=== PATIENT | male | born 1955 | race Native Hawaiian/Other Pacific Islander ===

== ENCOUNTER 2017-11-02 04:56 | Emergency (ER) | payer OTHER ==
[~2017-11-02] VITALS: Ht 177.8 cm; Wt 74.8 kg
[~2017-11-02 04:56] MED LIST: ALPR0.2566 PO; AMBIEN5 MG PO; BC HEADACHE PO; METOPROLOL25 M1 OR; OMEP20CA PO; PROZAC10 MG PO
[2017-11-02 07:09] LABS: POTASSIUM 3.8 mmol/L (3.6-5.2); SODIUM 129 mmol/L (136-145)
[2017-11-02 07:10] LABS: PLATELET COUNT 235 K/uL (142-355)
[2017-11-02 08:35] VITALS: BP 154/83
== END 2017-11-02 08:35 | disposition home or self-care (01) ==
LOC: ED 04:56
PROVIDERS: Emergency Medicine
DX: R07.89 Other chest pain (principal); F41.9 Anxiety disorder, unspecified; F15.90 Other stimulant use, unspecified, uncomplicated; F14.90 Cocaine use, unspecified, uncomplicated; R00.1 Bradycardia, unspecified
CPT/HCPCS: 80053; 80307; 82550; 82553; 84484; 85027; 93005; 96360; 99284; G0479

== ENCOUNTER 2018-01-19 09:23 | Outpatient (CLI) | payer OTHER | END 2018-01-19 09:31 | disposition short-term general hospital (02) | LOC: AMB 09:23 | DX: R07.89 Other chest pain (principal); M54.2 Cervicalgia | CPT/HCPCS: A0425; A0427 ==

== ENCOUNTER 2018-01-19 09:31 | Emergency (ER) | payer OTHER ==
[~2018-01-19] VITALS: Ht 177.8 cm; Wt 74.8 kg
[2018-01-19 09:44] VITALS: TEMP 98.1
[2018-01-19 10:11] LABS: PLATELET COUNT 235 K/uL (142-355)
[2018-01-19 10:45] LABS: POTASSIUM 4.2 mmol/L (3.6-5.2)
[2018-01-19 12:35] VITALS: BP 121/76
== END 2018-01-19 12:37 | disposition home or self-care (01) ==
LOC: ED 09:31
DX: F15.10 Other stimulant abuse, uncomplicated (principal); F13.10 Sedative, hypnotic or anxiolytic abuse, uncomplicated
CPT/HCPCS: 36415; 80053; 80307; 81000; 82550; 84484; 85027; 93005; 99283

== ENCOUNTER 2018-05-14 01:44 | Emergency (ER) | payer OTHER ==
[~2018-05-14] VITALS: Ht 177.8 cm; Wt 73.5 kg
[2018-05-14 01:52] VITALS: BP 126/82; TEMP 98.2
[2018-05-14 02:24] LABS: PLATELET COUNT 257 K/uL (142-355)
== END 2018-05-14 04:00 ==
LOC: ED 01:44
PROVIDERS: Family Medicine
DX: F19.10 Other psychoactive substance abuse, uncomplicated (principal)
CPT/HCPCS: 36415; 80307; 85027; 93005; 99285

== ENCOUNTER → 2018-05-14 | Outpatient (CLI) | payer OTHER | END | disposition short-term general hospital (02) | LOC: AMB 01:23 | DX: R45.851 Suicidal ideations (principal); F19.129 Other psychoactive substance abuse with intoxication, unspecified | CPT/HCPCS: A0425; A0429 ==

== ENCOUNTER 2018-05-24 17:34 | Emergency (ER) | payer OTHER ==
[~2018-05-24] VITALS: Ht 177.8 cm; Wt 73.5 kg
[2018-05-24 19:44] VITALS: BP 126/72; TEMP 98.7
== END 2018-05-24 19:44 | disposition home or self-care (01) ==
LOC: ED 17:34
DX: S02.31XA Fracture of orbital floor, right side, initial encounter for closed fracture (principal); Y09 Assault by unspecified means
CPT/HCPCS: 80307; 99283

== ENCOUNTER 2018-07-18 20:31 | Emergency (ER) | payer OTHER ==
[~2018-07-18] VITALS: Ht 177.8 cm; Wt 73.5 kg
[2018-07-18 20:17] VITALS: TEMP 98.2
[2018-07-18 21:42] LABS: PLATELET COUNT 251 K/uL (142-355)
[2018-07-18 21:54] LABS: POTASSIUM 3.8 mmol/L (3.6-5.2)
[2018-07-19 03:50] VITALS: BP 140/82
== END 2018-07-19 03:51 | disposition still patient (30) ==
LOC: ED 20:31
DX: F29 Unspecified psychosis not due to a substance or known physiological condition (principal); F15.10 Other stimulant abuse, uncomplicated
CPT/HCPCS: 80053; 80307; 80320; 80329; 81000; 85027; 93005; 99285

== ENCOUNTER 2019-07-16 00:22 | Outpatient (CLI) | payer OTHER | END 2019-07-16 00:26 | disposition short-term general hospital (02) | LOC: AMB 00:22 | DX: F15.10 Other stimulant abuse, uncomplicated (principal); T43.621A Poisoning by amphetamines, accidental (unintentional), initial encounter; Y92.038 Other place in apartment as the place of occurrence of the external cause | CPT/HCPCS: A0425; A0427 ==

== ENCOUNTER 2019-07-16 00:32 | Emergency (ER) | payer OTHER ==
[~2019-07-16] VITALS: Ht 177.8 cm; Wt 74.8 kg
[2019-07-16 00:36] VITALS: BP 160/81; TEMP 97.3
[2019-07-16 00:54] LABS: PLATELET COUNT 248 K/uL (142-355)
[2019-07-16 01:02] LABS: POTASSIUM 3.8 mmol/L (3.6-5.2); SODIUM 137 mmol/L (136-145)
== END 2019-07-16 00:58 | disposition home or self-care (01) ==
LOC: ED 00:32
PROVIDERS: Emergency Medicine
DX: R19.09 Other intra-abdominal and pelvic swelling, mass and lump (principal); T43.625A Adverse effect of amphetamines, initial encounter; Y92.89 Other specified places as the place of occurrence of the external cause
CPT/HCPCS: 36415; 80053; 80320; 80329; 82550; 82553; 84484; 85027; 93005; 99283

== ENCOUNTER 2019-08-26 20:03 | Emergency (ER) | payer OTHER ==
[~2019-08-26] VITALS: Ht 177.8 cm; Wt 74.8 kg
[2019-08-26 22:07] VITALS: BP 129/68; TEMP 98.9
== END 2019-08-26 21:37 | disposition home or self-care (01) ==
LOC: ED 20:03
DX: J02.9 Acute pharyngitis, unspecified (principal); F17.210 Nicotine dependence, cigarettes, uncomplicated
CPT/HCPCS: 87502; 87651; 99283

== ENCOUNTER 2020-04-15 03:02 | Emergency (ER) | payer OTHER ==
[~2020-04-15] VITALS: Ht 177.8 cm; Wt 74.8 kg
[2020-04-15 04:04] VITALS: BP 146/79; TEMP 98.3
== END 2020-04-15 04:05 | disposition home or self-care (01) ==
LOC: ED 03:02
DX: T78.49XA Other allergy, initial encounter (principal)
CPT/HCPCS: 96372; 99282; J1200; J2930

== ENCOUNTER 2020-04-16 01:29 | Emergency (ER) | payer OTHER ==
[~2020-04-16] VITALS: Ht 177.8 cm; Wt 76.2 kg
[2020-04-16 01:35] VITALS: BP 149/70; TEMP 98.9
[2020-04-16 02:23] LABS: POTASSIUM 4.3 mmol/L (3.6-5.2); SODIUM 137 mmol/L (136-145)
[2020-04-16 02:28] LABS: PLATELET COUNT 274 K/uL (142-355)
== END 2020-04-16 04:30 | disposition home or self-care (01) ==
LOC: ED 01:29
PROVIDERS: Family Medicine
DX: F15.10 Other stimulant abuse, uncomplicated (principal); R07.89 Other chest pain; Z79.899 Other long term (current) drug therapy
CPT/HCPCS: 36415; 80053; 80307; 81000; 82550; 83735; 83880; 84484; 85027; 85379; 93005; 99283

== ENCOUNTER 2020-06-04 22:06 | Emergency (ER) | payer OTHER ==
[~2020-06-04] VITALS: Ht 177.8 cm; Wt 76.2 kg
[2020-06-04 22:47] LABS: PLATELET COUNT 224 K/uL (142-355)
[2020-06-04 22:53] LABS: POTASSIUM 4.2 mmol/L (3.6-5.2)
[2020-06-05 02:35] VITALS: BP 131/67; TEMP 98.3
== END 2020-06-05 02:35 | disposition other institution (70) ==
LOC: ED 22:06
PROVIDERS: Emergency Medicine
DX: F28 Other psychotic disorder not due to a substance or known physiological condition (principal)
CPT/HCPCS: 36415; 80053; 80307; 80320; 80329; 81000; 85027; 93005; 99285

== ENCOUNTER 2022-09-19 00:35 | Emergency (ER) | payer OTHER ==
[~2022-09-19] VITALS: Ht 177.8 cm; Wt 76.2 kg
[2022-09-19 00:35] VITALS: TEMP 98.5
[2022-09-19 01:19] LABS: PLATELET COUNT 240 K/uL (142-355)
[2022-09-19 01:56] LABS: PARTIAL THROMBOPLASTIN TIME 24.3 SECONDS (24.5-33.6)
[2022-09-19 01:58] LABS: POTASSIUM 4.3 mmol/L (3.6-5.2); SODIUM 138 mmol/L (136-145)
[2022-09-19 07:10] VITALS: BP 126/78
== END 2022-09-19 16:31 | disposition still patient (30) ==
LOC: ED 00:35
PROVIDERS: Emergency Medicine
PROC: 0HQFXZZ Repair Right Hand Skin, External Approach (ICD-10-PCS; principal; 2022-09-19)
DX: F15.151 Other stimulant abuse with stimulant-induced psychotic disorder with hallucinations (principal); R44.2 Other hallucinations; S50.812A Abrasion of left forearm, initial encounter; S50.811A Abrasion of right forearm, initial encounter; S60.812A Abrasion of left wrist, initial encounter; S60.811A Abrasion of right wrist, initial encounter; S50.312A Abrasion of left elbow, initial encounter; S50.311A Abrasion of right elbow, initial encounter; S80.212A Abrasion, left knee, initial encounter; S61.216A Laceration without foreign body of right little finger without damage to nail, initial encounter; S00.11XA Contusion of right eyelid and periocular area, initial encounter; Z11.52 Encounter for screening for COVID-19; W18.39XA Other fall on same level, initial encounter; Y93.02 Activity, running; Y92.488 Other paved roadways as the place of occurrence of the external cause
CPT/HCPCS: 36415; 80053; 80143; 80179; 80307; 80320; 81002; 82550; 84484; 85027; 85610; 85730; 87635; 90471; 90715; 93005; 96365; 96372; 99285; J0696; J2060; J3486; J7040; U0003

== ENCOUNTER 2023-04-06 20:30 | Emergency (ER) | payer OTHER ==
[~2023-04-06] VITALS: Ht 177.8 cm; Wt 63.5 kg
[2023-04-06 21:28] LABS: PLATELET COUNT 226 K/uL (142-355)
[2023-04-06 21:31] LABS: POTASSIUM 4.6 mmol/L (3.6-5.2)
[2023-04-06 22:34] VITALS: BP 147/75; TEMP 98
== END 2023-04-06 22:34 | disposition home or self-care (01) ==
LOC: ED 20:30
PROVIDERS: Emergency Medicine
DX: F41.0 Panic disorder [episodic paroxysmal anxiety] (principal); F17.210 Nicotine dependence, cigarettes, uncomplicated; F15.90 Other stimulant use, unspecified, uncomplicated
CPT/HCPCS: 36415; 80053; 80307; 80320; 82550; 84484; 85027; 85379; 93005; 99283